=== PATIENT | male | born 1950 | race Caucasian/White ===

== ENCOUNTER 2016-10-17 19:34 | Emergency (ER) | payer MEDICARE ==
[~2016-10-17] VITALS: Ht 185.4 cm; Wt 104.1 kg
[~2016-10-17 19:34] MED LIST: ASPI-557 PO; ATOR80TA PO; CARV3.123 PO; CITA-51 PO; DIGO125T88 PO; IBUP-1547 PO; ISOS60TA4 PO; MULT-933 PO; NITR0.4T39 SL; PRAS10TA5 PO; SACU1TAB PO; SPIR25TA4 PO
[2016-10-17 19:38] VITALS: Ht 185.4 cm; Wt 104.1 kg
--- OUTSIDE RECORDS SUMMARY | 2016-10-17 19:39 | XMS REPORT | Continuity of Care Document ---
Author Author [facility] Organization [facility] Address Unknown Phone Unavailable Support Name Relationship Address Phone SURJIT CONNER Caregiver [address] [place] [address] Unavailable DEMETRIUS TAYLOR Caregiver [address] [place] [address] Unavailable FIGUEROAZAIRA Hill Next Of Kin Unknown [phone] Insurance Providers Guarantor Codey Pena Address [address] [place] [address] CP Email DENIED/NO PT [employer] [facility] Payer Medicare Policy Number [id number] Subscriber's Name Codey Pena Relationship 18 Self Effective Date 08 Chief Complaint and Reason for Visit Chief Complaint Acute Medical Problem Reason for Visit Blurred vision Arm pain Problems Active Problems Medical Problem Onset Date Status Angina at rest Unknown Acute Past Problems Medical Problem Onset Date Arm pain Unknown Blurred vision Unknown Chest pain on exertion Unknown Hand tingling Unknown STEMI (ST elevation myocardial infarction) Unknown Medications Current Home Medications Medication Dose Units Route Directions Days Qty Instructions Start Date Aspirin (Aspir 81) 81 Mg Tablet.dr 81 Mg Oral Bedtime 01/19/16 Atorvastatin Calcium (Lipitor) 80 Mg Tablet 80 Mg Oral Bedtime Carvedilol 3.125 Mg Tablet 1 Tab Oral Twice Daily With Meals BEST WITH FOOD. 04/16/16 Citalopram Hydrobromide (Celexa) 40 Mg Tablet 40 Mg Oral Bedtime 04/25/09 Digoxin 125 Mcg Tablet 125 Mg Oral Daily 04/16/16 Ibuprofen 800 Mg Tablet 800 Mg Oral Every 6 Hours as needed for Pain 01/19/16 Isosorbide Mononitrate (Isosorbide Mononitrate Er) 60 Mg Tab.er.24h 30 Mg Oral Daily 04/16/16 Multivitamin (Multi-Day Vitamins) 1 Each Tablet 1 Tab Oral Daily 04/16/16 Nitroglycerin 0.4 Mg Tab.subl 0.4 Mg Sublingual Every 5 Minutes X 3 as needed for Chest Tightness 01/27/16 Prasugrel Hcl (Effient) 10 Mg Tablet 10 Mg Oral Daily 05/13/16 Sacubitril/Valsartan (Entresto 24 Mg-26 Mg Tablet) 1 Each Tablet 1 Tab Oral Daily 04/16/16 Spironolactone 25 Mg Tablet 25 Mg Oral Daily 04/16/16 Past Home Medications Medication Directions Ordered Status Aspirin 81 Mg Tablet, 81 Mg Oral Bedtime 03/23/09 Discontinued Atenolol 25 Mg Tablet, 25 Mg Oral Daily 04/25/09 Discontinued Carvedilol (Coreg) 25 Mg Tablet, 25 Mg Oral Twice Daily With Meals 01/19/16 Discontinued Clopidogrel Bisulfate (Plavix) 75 Mg Tablet, 75 Mg Oral Daily 01/19/16 Discontinued Lisinopril 2.5 Mg Tablet, 2.5 Mg Oral Bedtime 01/19/16 Discontinued Lisinopril 2.5 Mg Tablet, 2.5 Mg Oral Daily 04/25/09 Discontinued Lisinopril 10 Mg Tablet, 5 Mg Oral Daily 03/23/09 Discontinued Simvastatin 40 Mg Tablet, 40 Mg Oral Bedtime 04/25/09 Discontinued Social History Social History Problem Response Recorded Date/Time Onset Date Status Chewing Tobacco Status No 07/04/2012 2:53pm Not Applicable Not Applicable Hx Substance Use No 04/15/2016 9:16am Not Applicable Not Applicable Hx Alcohol Use No 04/15/2016 9:16am Not Applicable Not Applicable Has the pt used tobacco in the last 12 months Yes 04/15/2016 9:16am Not Applicable Not Applicable Tobacco Usage none 10/15/2015 3:17am Not Applicable Not Applicable Hospital Discharge Instructions No hospital discharge instructions. Plan of Care Discharge Date 05/13/16 6:25pm Disposition 01 DISCHARGED HOME, SELF-CARE Condition at Discharge Improved Instructions/Education Provided DI for Shortness of Breath DI for Arm Pain Prescriptions See Medication Section Referrals DEMETRIUS TAYLOR Address: [address] [place] [id number] Note: OPAL GILL MD Address: [address] [place] [address] [place] [phone] Note: Call tomorrow for appointment Care Plan and Goals Physician Care Plan Problem: 1. Bilateral Arm Pain 2. Shortness of Breath 3. Blurred vision Goal: 1. Follow up with primary care provider in [address] Gill tomorrow for appointment 3. COntinue Home Medications 4. Return to the ER as needed Instructions: 1. Follow care plan as discussed/written Functional Status No functional status results. Allergies, Adverse Reactions, Alerts Allergen Type Severity Reaction Status Last Updated No Known Drug Allergies Allergy Unknown Active 05/13/16 Immunizations Query Response on File Recorded Date/Time Hx Influenza Vaccination Y 201504/15/16 9:16am Hx Pneumococcal Vaccination Y 201504/15/16 9:16am Hx Tetanus, Diptheria, Pertussis N/A SKIN INTACT 08/02/12 3:00pm Hx Influenza Vaccination Y 201504/15/16 9:16am Hx Tetanus, Diptheria, Pertussis N/A SKIN INTACT 08/02/12 3:00pm Vital Signs Acute Vital Signs Vital Response Date/Time Temperature (Fahrenheit) 98.2 deg F (96.8 - 99.1) 05/13/2016 6:25pm Temperature (Calculated Celsius) 36.91849 degrees C (36.0 - 37.3) 05/13/2016 6:25pm Pulse Rate (adult) 58 bpm (60 - 100) 05/13/2016 6:28pm Respiratory Rate 20 breaths/min (10 - 20) 05/13/2016 6:28pm O2 Sat by Pulse Oximetry 98 % (90 - 100) 05/13/2016 6:28pm Oxygen Delivery Method Room Air 04/16/2016 12:01pm Blood Pressure 134/76 mm Hg 05/13/2016 6:28pm Blood Pressure Source Automatic Cuff 04/16/2016 12:01pm Height (Feet) 6 feet 05/13/2016 4:20pm Height (Inches) 2.00 inches 05/13/2016 4:20pm Weight (Kilograms) 106.200 kg 05/13/2016 4:20pm Body Mass Index (BMI) 30.0 05/13/2016 4:20pm Results Laboratory Results Test Name Result Units Flags Reference Collection Date/Time Result Date/ Time Comments White Blood Count 9.1 T/MM3 4.5-11.0 05/13/2016 4:44pm 05/13/2016 4: 50pm Red Blood Count 4.38 M/MM3 L 4.50-5.90 05/13/2016 4:44pm 05/13/2016 4: 50pm Hemoglobin 14.2 GM/DL 13.5-17.5 05/13/2016 4:44pm 05/13/2016 4:50pm Hematocrit 42.0 % 41-53 05/13/2016 4:44pm 05/13/2016 4:50pm Mean Corpuscular Volume 95.9 UM3 80-100 05/13/2016 4:44pm 05/13/2016 4: 50pm Mean Corpuscular Hemoglobin 32.4 UUG 26-34 05/13/2016 4:44pm 2015 4:50pm Mean Corpuscular Hemoglobin Concent 33.8 GM/DL 31-37 05/13/2016 4:44pm 05/13/2016 4:50pm RDW Standard Deviation 46.1 FL 36.9-50.2 05/13/2016 4:44pm 05/13/2016 4 :50pm Platelet Count 186 T/MM3 130-400 05/13/2016 4:44pm 05/13/2016 4:50pm Mean Platelet Volume 10.3 UM3 9.4-12.4 05/13/2016 4:44pm 05/13/2016 4: 50pm Neutrophils (%) (Auto) 51.1 % 33-66 05/13/2016 4:44pm 05/13/2016 4: 50pm Lymphocytes (%) (Auto) 38.5 % 23-45 05/13/2016 4:44pm 05/13/2016 4: 50pm Monocytes (%) (Auto) 8.6 % 0-9.0 05/13/2016 4:44pm 05/13/2016 4:50pm Eosinophils (%) (Auto) 1.4 % 0-4 05/13/2016 4:44pm 05/13/2016 4:50pm Basophils (%) (Auto) 0.2 % 0-2 05/13/2016 4:44pm 05/13/2016 4:50pm Immature Granulocyte % (Auto) 0.2 % 0.0-0.5 05/13/2016 4:44pm 2015 4:50pm Absolute Neutrophils (auto) 4.7 T/MM3 1.8-7.7 05/13/2016 4:44pm 2015 4:50pm Absolute Lymphocytes (auto) 3.5 T/MM3 1-4.8 05/13/2016 4:44pm 2015 4:50pm Absolute Monocytes (auto) 0.8 T/MM3 0-0.8 05/13/2016 4:44pm 05/13/2016 4:50pm Absolute Eosinophils (auto) 0.1 T/MM3 0-0.5 05/13/2016 4:44pm 2015 4:50pm Absolute Basophils (auto) 0.0 T/MM3 0-0.2 05/13/2016 4:44pm 05/13/2016 4:50pm Absolute Immature Granulocyte (auto 0.02 T/MM3 0.00-0.03 05/13/2016 4: 44pm 05/13/2016 4:50pm Prothromb Time International Ratio 1.09 0.99-1.21 05/13/2016 4:44pm 05/13/2016 4:56pm THERAPUTIC RANGE=2.00-3.00 FOR ANTI-THROMBOSIS THERAPUTIC RANGE=2.50-3.50 FOR IMPLANTED VALVE Icterus Index < 2 0-7 05/13/2016 4:44pm 05/13/2016 5:01pm Chemistry Specimen Hemolysis < 15 0-25 05/13/2016 4:44pm 05/13/2016 5 :01pm 0-25: Specimen Exhibited No Hemolysis. Turbidity < 20 0-20 05/13/2016 4:44pm 05/13/2016 5:01pm Sodium Level 140 MEQ/L 134-144 05/13/2016 4:44pm 05/13/2016 5:01pm Potassium Level 3.9 MEQ/L 3.6-5 05/13/2016 4:44pm 05/13/2016 5:01pm Chloride Level 106 MEQ/L 98-107 05/13/2016 4:44pm 05/13/2016 5:01pm Carbon Dioxide Level 25 MEQ/L 22-30 05/13/2016 4:44pm 05/13/2016 5: 01pm Anion Gap 9 MEQ/L 5-15 05/13/2016 4:44pm 05/13/2016 5:01pm Blood Urea Nitrogen 17.0 MG/DL 9-20 05/13/2016 4:44pm 05/13/2016 5: 01pm Creatinine 0.9 MG/DL 0.8-1.5 05/13/2016 4:44pm 05/13/2016 5:01pm BUN/Creatinine Ratio 19 RATIO 6-26 05/13/2016 4:44pm 05/13/2016 5:01pm Glomerular Filtration Rate Calc 85 05/13/2016 4:44pm 05/13/2016 5: 01pm Glucose Level 86 MG/DL 75-110 05/13/2016 4:44pm 05/13/2016 5:01pm Calculated Osmolality 270 MOSM/KG 261-280 05/13/2016 4:44pm 05/13/2016 5:01pm Calcium Level 9.3 MG/DL 8.4-10.2 05/13/2016 4:44pm 05/13/2016 5:01pm Troponin I 0.013 ng/ml 0-0.12 05/13/2016 4:44pm 05/13/2016 5:13pm Troponin values with a difference of 55% increase from orginal troponin value represent a true biological DELTA value. (%increase Calc=Orginal Troponin value, divided by subsequent Troponin value, multiplied by 100) NG-Wbr-C-Type Natriuretic Peptide 1490 PG/ML H 0-175 05/13/2016 4:44pm 05/13/2016 5:13pm Rule in cut points: <50 years old=450; 50-75 years old=900; >75 years old=1800; When utilizing ProBNP rule-in cut points, adjustment for impaired renal function is typically not required. Name: CODEY PENA Unit #: [id number] : 1950 Sex: M Admit Date: Loc / Svc: ED Discharge Date: DIAGNOSTIC IMAGING REPORT Report #: [id number] [facility] Indication: ITS.REASON: intermittant blurred vision PROCEDURE: CT HEAD W/O CONTRAST: Encounter: Initial Comparison: None Technique: Axial CT images through the head were performed without contrast. FINDINGS: The ventricles are of normal size, shape, and contour for the patient's age. There are scattered areas of low attenuation in the white matter which most likely represent changes from chronic microvascular ischemia. The brainstem, cerebellum, and cerebral hemispheres otherwise have a normal morphology and CT attenuation. There is no evidence of midline displacement. No hemorrhage, signs of acute territorial stroke, mass effect, mass lesions, or edema is evident. The visualized portions of the skull base, midface, and calvarium demonstrate no abnormality. The paranasal sinuses are well aerated and free of significant disease. The tympanic and mastoid cavities appear normal. IMPRESSION: 1. Negative for acute intracranial process. 2. Mild cerebral atrophy and chronic microvascular ischemia. . Procedures Procedure Status Date Provider(s) ROUTINE VENIPUNCTURE Completed 04/16/16 METABOLIC PANEL TOTAL CA Completed 04/16/16 COMPLETE CBC W/AUTO DIFF WBC Completed 04/16/16 PRQ CARDIAC ANGIOPLAST 1 ART Completed 04/16/16 OPAL GILL MD ELECTROCARDIOGRAM TRACING Completed 04/16/16 L HRT ART/GRFT ANGIO Completed 04/16/16 OPAL GILL MD [id number]/PERFUSION CAPABILITY) Completed 04/16/16 226411"CLOSURE DEVICE, VASCULAR (IMPLANTABLE/INSERTABLE)" Completed 04/16/16 [id number] WIRE Completed 04/16/16 908710"CATHETER, GUIDING (MAY INCLUDE INFUSION/PERFUSION CAP Completed [id number] THAN PEEL-AWAY Completed 04/16/16 345558"INJECTION, HEPARIN SODIUM, PER 1000 UNITS" Completed 04/16/16 730656"INJECTION, HEPARIN SODIUM, PER 1000 UNITS" Completed 04/16/16 022224"INJECTION, MIDAZOLAM HYDROCHLORIDE, PER 1 MG" Completed 04/16/16 558279"INJECTION, FENTANYL CITRATE, 0.1 MG" Completed 04/16/16 344035"LOW OSMOLAR CONTRAST MATERIAL, 300-399 MG/ML IODINE C Completed 206312"LOW OSMOLAR CONTRAST MATERIAL, 300-399 MG/ML IODINE C Completed 141984"LOW OSMOLAR CONTRAST MATERIAL, 300-399 MG/ML IODINE C Completed Encounters Encounter Location Arrival/Admit Date Discharge/Depart Date Attending Provider Departed Emergency Room [facility] 05/13/16 4:16pm 05/13/16 6: 25pm SURJIT CONNER DO Departed Clinic [facility] 11/01/16 6:02am 04/16/16 12:20pm OPAL GILL MD Recent Diagnosis
--- OUTSIDE RECORDS SUMMARY | 2016-10-17 19:39 | XMS REPORT | Referral Summary ---
Author Author [facility] Organization [facility] Address Unknown Phone Unavailable Care Team Providers Care Filing Or Registry Clerk Name Role Phone Bc Orourke Primary Care Physician [phone] Encounter Date(s): 04/04/16 - 04/04/16 [facility] [address] [place], [place] [address] Discharge Diagnosis: Fatigue Discharge Diagnosis: Tobacco user Discharge Diagnosis: Benign essential hypertension Discharge Diagnosis: DDD (degenerative disc disease), lumbar Discharge Diagnosis: Coronary artery disease involving [place] heart Discharge Diagnosis: Mixed hyperlipidemia Discharge Disposition: 01-Home or Self Care Attending Physician: Geo Orourke MD Admitting Physician: Geo Orourke MD Vital Signs Most recent to 1 oldest [Reference Range]: Peripheral Pulse 75 bpm Rate [60-100 bpm] (04/04/16 3:59 PM) Respiratory Rate 18 br/min [14-20 br/min] (04/04/16 3:59 PM) Blood Pressure 142/92 mmHg [90-140/60-90 mmHg] *HI* (04/04/16 3:59 PM) SpO2 99 % (04/04/16 3:59 PM) Problem List Condition Effective Dates Status Health Status Informant DDD (degenerative Active disc disease), lumbar(Confirmed) Heart Active disease(Confirmed) Lumbar Active spondylosis(Confirme d) Lumbosacral Active radiculopathy(Confir med) Heart Active attack(Confirmed) Neuropathy(Confirmed Active ) Obesity(Confirmed) Active patient Lumbar disc Active herniation(Confirmed ) Spinal stenosis, Active lumbar region, without neurogenic claudication(Confirm ed) Tobacco Active patient user(Confirmed) Allergies, Adverse Reactions, Alerts No Known Medication Allergies Medications aspirin 81 mg, Oral, Daily, 0 Refill(s) Start Date: 02/07/16 Status: Ordered atorvastatin 80 mg oral tablet mg tabs, Oral, Daily, 0 Refill(s) Start Date: 02/07/16 Status: Ordered carvedilol 3.125 mg oral tablet 3.125 mg 1 tabs, Oral, BID, 0 Refill(s) Start Date: 02/07/16 Status: Ordered digoxin 125 mcg (0.125 mg) oral tablet 1 tabs, Oral, Daily, 0 Refill(s) Start Date: 02/07/14 Status: Ordered Effient 10 mg oral tablet 10 mg 1 tabs, Oral, Daily, # 30 tabs, 0 Refill(s) Start Date: 02/07/16 Status: Ordered gabapentin 300 mg oral capsule See Instructions, 1 cap at bedtime for 5 days, then increase to 1 cap in AM and 1 at bedtime for 5 days, then 1 cap 3 times daily if tolerated and needed., # 90 caps, 0 Refill(s), Pharmacy: [facility], 1 cap at bedtime for 5 da... Start Date: 11/17/15 Status: Ordered ibuprofen 800 mg oral tablet See Instructions, TAKE 1 TABLET BY MOUTH THREE TIMES A DAY NEEDED FOR PAIN, # 90 tabs, eRx: [facility], TAKE 1 TABLET BY MOUTH THREE TIMES A DAY NEEDED FOR PAIN Start Date: 04/01/16 Status: Ordered nitroglycerin 0.4 mg, as needed for chest pain, 0 Refill(s) Start Date: 02/07/16 Status: Ordered [place] 10 mg-325 mg oral tablet 1 tabs, Oral, QID, DUE TO BE FILLED 05/05/2016, # 120 tabs, 0 Refill(s) Start Date: 04/04/16 Status: Ordered Results Hematology Most recent to 1 oldest [Reference Range]: WBC [4.8-10.8 8.8 10*3/uL 10*3/uL] (04/04/16 4:47 PM) RBC [4.60-6.20] 4.48 *LOW* (04/04/16 4:47 PM) Hgb [14.0-18.0 13.9 gm/dL gm/dL] *LOW* (04/04/16 4:47 PM) Hct [42.0-52.0 %] 41.8 % *LOW* (04/04/16 4:47 PM) MCV [82.0-99.0 fL] 93.3 fL (04/04/16 4:47 PM) MCH [27.0-32.0 pg] 31.0 pg (04/04/16 4:47 PM) MCHC [32.0-36.0 33.3 gm/dL gm/dL] (04/04/16 4:47 PM) RDW [11.5-14.5 %] 13.6 % (04/04/16 4:47 PM) Platelet [150-400 219 10*3/uL 10*3/uL] (04/04/16 4:47 PM) MPV [8.8-14.8 fL] 10.9 fL (04/04/16 4:47 PM) Immature 0.2 % Granulocytes (04/04/16 4:47 PM) [0.0-1.0 %] Neutrophils [51-75 47 % %] *LOW* (04/04/16 4:47 PM) Lymphocytes [20-46 39 % %] (04/04/16 4:47 PM) Monocytes [4-11 %] 11 % (04/04/16 4:47 PM) Eosinophils [0-4 %] 2 % (04/04/16 4:47 PM) Basophils [0-2 %] 0 % (04/04/16 4:47 PM) Neutro Absolute 4.17 10*3 [1.90-7.00 10*3] (04/04/16 4:47 PM) Lymph Absolute 3.43 10*3 [0.80-3.30 10*3] *HI* (04/04/16 4:47 PM) [place] Absolute 0.99 10*3 [0.30-1.00 10*3] (04/04/16 4:47 PM) Eos Absolute 0.17 10*3 [0.00-0.50 10*3] (04/04/16 4:47 PM) Baso Absolute 0.02 10*3 [0.00-0.20 10*3] (04/04/16 4:47 PM) Chemistry Most recent to 1 oldest [Reference Range]: Sodium Lvl [135-144 140 mEq/L mEq/L] (04/04/16 4:47 PM) Potassium Lvl 4.0 mEq/L [3.5-5.2 mEq/L] (04/04/16 4:47 PM) Chloride [99-111 108 mEq/L mEq/L] (04/04/16 4:47 PM) CO2 [23-31 mEq/L] 23 mEq/L (04/04/16 4:47 PM) AGAP [3-20] 9 (04/04/16 4:47 PM) BUN [8-26 mg/dL] 17 mg/dL (04/04/16 4:47 PM) Glucose Lvl [70-99 92 mg/dL mg/dL] (04/04/16 4:47 PM) Creatinine Lvl 0.88 mg/dL [0.72-1.25 mg/dL] (04/04/16 4:47 PM) eGFR [>60 mL/min] >60 mL/min 1 (04/04/16 4:47 PM) Calcium Lvl 9.4 mg/dL [8.9-10.5 mg/dL] (04/04/16 4:47 PM) Albumin Lvl [3.4-4.8 4.6 gm/dL gm/dL] (04/04/16 4:47 PM) Total Protein 7.1 gm/dL [6.0-7.6 gm/dL] (04/04/16 4:47 PM) Globulin [1.8-4.0 2.5 gm/dL gm/dL] (04/04/16 4:47 PM) ALT [0-55 U/L] 20 U/L (04/04/16 4:47 PM) AST [5-34 U/L] 24 U/L (04/04/16 4:47 PM) Alk Phos [40-150 57 U/L U/L] (04/04/16 4:47 PM) Bili Total [0.2-1.2 0.6 mg/dL mg/dL] (04/04/16 4:47 PM) LDL Direct [0-129 81 mg/dL mg/dL] (04/04/16 4:47 PM) 1Result Comment: Multiply eGFR results by 1.21 for race. Immunizations Vaccine Date Refusal Reason tetanus/diphth/pertuss (Tdap) adult/adol 12/01/15 tetanus/diphth/pertuss (Tdap) adult/adol 09/01/09 influenza virus vaccine, inactivated 04/04/16 influenza virus vaccine, live 04/14/13 influenza virus vaccine, live 07/09/12 pneumococcal 13-valent conjugate vaccine 04/04/16 pneumococcal 23-polyvalent vaccine 02/12/13 zoster vaccine live 02/12/13 Procedures Procedure Date Related Diagnosis Body Site Lumbar Myelogram 03/22/15 Left L3-4/L4-5 Transforaminal 12/05/14 Pacemaker Social History Social History Type Response Smoking Status Current every day smoker; Type: Cigarettes; Tobacco use per day: More than 1 pack Assessment and Plan Extracted from: Title: Office Visit Note Author: Geo Orourke MD Date: 04/04/16 Assessment/Plan 1.Benign essential hypertension Continue current medications. We'll have him check laboratory as ordered. We'll send him the results in the mail. Ordered: CBC w/ Differential Comprehensive Metabolic Panel LDL Direct Office Visit Level 4 Est 14539 2.Mixed hyperlipidemia Continue low-cholesterol low-fat diet and activity. I encouraged him follow through with hisplan for cardiac rehabilitationcheck an LDL direct today. Follow-up in 3 months and period. Ordered: CBC w/ Differential Comprehensive Metabolic Panel LDL Direct Office Visit Level 4 Est 90844 3.DDD (degenerative disc disease), lumbar Is given a prescription for his [place]- 1 prescription to get filled soon and will get filled in about a month. Ordered: CBC w/ Differential Comprehensive Metabolic Panel Office Visit Level 4 Est 05208 4.Coronary artery disease involving [place] heart Continue follow-up with Ordered: CBC w/ Differential Comprehensive Metabolic Panel LDL Direct Office Visit Level 4 Est 66184 5.Fatigue Increase the Celexa to 100 half tablets daily. Ordered: CBC w/ Differential Comprehensive Metabolic Panel Office Visit Level 4 Est 53636 6.Tobacco user Continue off the cigarettes. Add in an exercise program such as walking or bicyclingcontinue with rehabilitation. Ordered: CBC w/ Differential Comprehensive Metabolic Panel Office Visit Level 4 Est 65417 Immunization due He was given a Prevnar and flu shot today. Future Scheduled TestsReferral* Return to Clinic 04/04/16 4:34 PM * Return to Clinic 02/07/16 11:45 AM Referrals to Other Providers Referred by: Geo Orourke MD Referred by: Geo Orourke MD
--- OUTSIDE RECORDS SUMMARY | 2016-10-17 19:39 | XMS REPORT ---
Author Author Manuel Yeager Organization [facility] Address [address] [place] [address] Care Team Providers Care Inspector Soldering Name Role Phone Manuel Yeager Unavailable [phone] PROBLEMS Unknown Problems ALLERGIES Unknown Allergies SOCIAL HISTORY No smoking Hx information available PLAN OF CARE VITAL SIGNS MEDICATIONS Unknown Medications RESULTS No Results PROCEDURES No Known procedures IMMUNIZATIONS No Known Immunizations
--- OUTSIDE RECORDS SUMMARY | 2016-10-17 19:40 | XMS REPORT | Continuity of Care Document ---
Author Author [facility] Organization [facility] Address Unknown Phone Unavailable Allergies Active Description Code Type Severity Reaction Onset Reported/Identified Relationship to Patient Clinical Status Yes No Known Drug Allergies No Known Drug Allergies Drug Allergy Unknown N/A 03/23/2009 Yes No Known Medication Allergies NKMA N/A N/A 08/15/2014 Yes No Known Drug Allergies No Known Drug Allergies Drug Allergy Unknown NONE 02/11/2016 Medications Problems Date Dx Coded Attending Type Code Diagnosis Diagnosed By 10/15/2015 Cas Yeager MD E78.5 HYPERLIPIDEMIA, UNSPECIFIED 10/15/2015 Cas Yeager MD F17.210 NICOTINE DEPENDENCE, CIGARETTES, UNCOMPLICATED 10/15/2015 Cas Yeager MD F32.9 MAJOR DEPRESSIVE DISORDER, SINGLE EPISODE, UNSPECI 10/15/2015 Cas Yeager MD G89.29 OTHER CHRONIC PAIN 10/15/2015 Cas Yeager MD I10 ESSENTIAL (PRIMARY) HYPERTENSION 10/15/2015 Cas Yeager MD 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 [place] 10/15/2015 Cas Yeager MD 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/O 10/15/2015 Cas Yeager MD I25.5 ISCHEMIC CARDIOMYOPATHY 10/15/2015 Cas Yeager MD I25.810 ATHEROSCLEROSIS OF CABG W/O ANGINA PECTORIS 10/15/2015 Cas Yeager MD 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 10/15/2015 Cas Yeager MD I47.2 VENTRICULAR TACHYCARDIA 10/15/2015 Cas Yeager MD I48.91 UNSPECIFIED ATRIAL FIBRILLATION 10/15/2015 Cas Yeager MD I50.23 ACUTE ON CHRONIC SYSTOLIC (CONGESTIVE) HEART FAILU 10/15/2015 Cas Yeager MD Z82.49 FAMILY HX OF ISCHEM HEART DIS AND OTH DIS OF THE C 01/27/2016 Toy SARABIA, Manuel Z F E78.5 HYPERLIPIDEMIA, UNSPECIFIED 01/27/2016 Toy SARABIA, Manuel Z F F17.210 NICOTINE DEPENDENCE, CIGARETTES, UNCOMPLICATED 01/27/2016 Manuel Yeager MD F F32.9 MAJOR DEPRESSIVE DISORDER, SINGLE EPISODE, UNSPECI 01/27/2016 Manuel Yeager MD F I10 ESSENTIAL (PRIMARY) HYPERTENSION 01/27/2016 Manuel Yeager MD Z F 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 [place] 01/27/2016 Toy SARABIA, Manuel Z F I25.110 ATHSCL HEART DISEASE OF [place] COR ART W UNSTABLE 01/27/2016 Manuel Yeager MD F I25.5 ISCHEMIC CARDIOMYOPATHY 01/27/2016 Manuel Yeager MD F 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 01/27/2016 Manuel Yeager MD F I50.43 ACUTE ON CHRONIC COMBINED SYSTOLIC AND DIASTOLIC H 01/27/2016 Manuel Yeager MD Z F 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 01/27/2016 Manuel Yeager MD Z F Z95.5 PRESENCE OF CORONARY ANGIOPLASTY IMPLANT AND GRAFT 01/27/2016 Manuel Yeager MD Z F Z95.810 PRESENCE OF AUTOMATIC (IMPLANTABLE) CARDIAC DEFIBR Procedures Code Description Performed By Performed On 698349N DILATION OF 1 COR ART WITH DRUG-ELUT INTRALUM, PER Toy SARABIA, Assem Z 10/15/2015 [id number] DILATION OF CORONARY ARTERY, ONE SITE, DARLINEUTABLAYNE Yeager MD, Assem Z 10/15/2015 [id number] INTRODUCE OTH THERAP SUBST IN PERIPH VEIN, DARLINE Yeager MD, Assem Z 10/15/2015 [id number] MEASURE OF CARDIAC SAMPL PRESSURE, L HEART, DARLINE Yeager MD, Assem Z 10/15/2015 [id number] FLUOROSCOPY OF MULT COR ART USING L OSM CONTRAST Toy SARABIA, Assem Z 10/15/2015 [id number] FLUOROSCOPY OF SING COR A GRAFT USING L OSM CONTRLuana Yeager MD, Assem Z 10/15/2015 [id number] FLUOROSCOPY OF LEFT HEART USING LOW OSMOLAR CLEMENTINA Yeager MD, Assem Z 10/15/2015 [id number] FLUOROSCOPY OF L INT MAMM GRAFT USING L OSM CONTRA Toy SARABIA, Assem Z 10/15/2015 [id number] DILATION OF 1 COR ART WITH DRUG-ELUT INTRALUM, PER Toy SARABIA, Assem Z 01/27/2016 [id number] MEASURE OF CARDIAC SAMPL PRESSURE, L HEART, PERC Toy SARABIA, Assem Z 01/27/2016 [id number] ASSIST WITH CARDIAC OUTPUT USING BALLOON PUMP, CON Toy SARABIA, Assem Z 01/27/2016 [id number] FLUOROSCOPY OF MULT COR ART USING L OSM CONTRAST Toy SARABIA, [facility] Z 01/27/2016 Results Test Result Range CBC - 10/15/15 05:56 MEAN CELL HGB 32.5 pg 27.0-33.0 MEAN CELL HGB CONCENTRATION 34.3 g/dL 32.0-37.0 MEAN CELL VOLUME 94.7 fl 80.0-100.0 RED BLOOD CELL 4.56 m/cumm 4.00-6.00 RED CELL DISTRIBUTION WIDTH 14.0 % 11.0- 15.6 WHITE BLOOD CELL 13.7 k/cumm 5.0-10.0 HEMOGLOBIN 14.8 gm/dL 14.0-18.0 HEMATOCRIT 43.2 % 40.0-54.0 PLATELET COUNT 183 k/cumm 150-400 PROTHROMBIN TIME WITH INR - 10/15/15 05:56 INTERNATIONAL NORMAL RATIO 1.0 0.9-1.1 PROTHROMBIN TIME 11.1 sec 9.3-12.2 PARTIAL THROMBOPLASTIN TIME - 10/15/15 05:56 PARTIAL THROMBOPLASTIN TIME 32 sec 23-39 METABOLIC PANEL, COMPREHN - 10/15/15 05:56 POTASSIUM 4.5 mmol/L 3.5-5.3 EST GFR (MDRD) > 60 mL/min > 59 ANION GAP 10 mmol/L 5-15 EST CrCl (CG) > 60 mL/min > 59 GLUCOSE 126 mg/dL 70-99 CALCIUM 8.5 mg/dL 8.5-10.1 BLOOD UREA NITROGEN 17 mg/dL 7-20 CREATININE 1.0 mg/dL 0.7-1.3 SODIUM 141 mmol/L 135-148 CHLORIDE 107 mmol/L 98-110 AST/SGOT 61 Units/L 10-37 ALT/SGPT 18 Units/L < 66 CARBON DIOXIDE 24 mmol/L 21-32 TOTAL PROTEIN 6.9 gm/dL 6.4-8.2 ALBUMIN 3.4 gm/dL 3.4-5.0 BILI TOTAL 0.2 mg/dL 0.0-1.0 ALKALINE PHOSPHATASE TOTAL 65 IU/L 45- 117 MAGNESIUM - 10/15/15 05:56 MAGNESIUM 1.9 mg/dL 1.8-2.4 TROPONIN I - 10/15/15 05:56 TROPONIN I 13.79 ng/mL < 0.07 CBC - 10/15/15 09:34 MEAN CELL HGB 32.3 pg 27.0-33.0 MEAN CELL HGB CONCENTRATION 34.2 g/dL 32.0-37.0 MEAN CELL VOLUME 94.6 fl 80.0-100.0 RED BLOOD CELL 4.61 m/cumm 4.00-6.00 RED CELL DISTRIBUTION WIDTH 14.1 % 11.0- 15.6 WHITE BLOOD CELL 11.4 k/cumm 5.0-10.0 HEMOGLOBIN 14.9 gm/dL 14.0-18.0 HEMATOCRIT 43.6 % 40.0-54.0 PLATELET COUNT 185 k/cumm 150-400 TROPONIN I - 10/15/15 09:34 TROPONIN I 59.67 ng/mL < 0.07 B-TYPE NATRIURETIC PEPTIDE - 10/15/15 13:04 B-TYPE NATRIURETIC PEPTIDE 343 pg/mL < 100 CBC W/DIFF - 10/15/15 13:04 EOSINOPHIL # 0.1 k/cumm 0.1-0.5 EOSINOPHIL % 1 % 2-4 GRANULOCYTE # 8.8 k/cumm 2.0-9.0 GRANULOCYTE % 70 % 50-75 LYMPHOCYTE # 2.7 k/cumm 1.0-4.0 LYMPHOCYTE % 21 % 20-30 MEAN CELL HGB 32.4 pg 27.0-33.0 MEAN CELL HGB CONCENTRATION 34.3 g/dL 32.0-37.0 MEAN CELL VOLUME 94.5 fl 80.0-100.0 MONOCYTE # 1.1 k/cumm 0.1-1.0 MONOCYTE % 8 % 4-6 RED BLOOD CELL 4.54 m/cumm 4.00-6.00 RED CELL DISTRIBUTION WIDTH 13.7 % 11.0- 15.6 WHITE BLOOD CELL 12.6 k/cumm 5.0-10.0 HEMOGLOBIN 14.7 gm/dL 14.0-18.0 HEMATOCRIT 42.9 % 40.0-54.0 PLATELET COUNT 198 k/cumm 150-400 HEMOGLOBIN A1C - 10/15/15 13:04 HEMOGLOBIN A1C 5.7 % < 5.7 PTT HEPARIN PROTOCOLS - 10/15/15 13:04 PARTIAL THROMBOPLASTIN TIME 67 sec 23-39 CREATINE KINASE (CK/CPK) - 10/15/15 13:04 CREATINE KINASE (CK/CPK) 1090 Units/L < 309 CK MB - 10/15/15 13:04 CK MB 154.5 ng/mL < 4.0 MAGNESIUM - 10/15/15 13:04 MAGNESIUM 1.9 mg/dL 1.8-2.4 THYROID STIM HORMONE (TSH) - 10/15/15 13:04 THYROID STIM HORMONE (TSH) 0.73 uIU/mL 0.34-4.82 TROPONIN I - 10/15/15 13:04 TROPONIN I 63.49 ng/mL < 0.07 TROPONIN I - 10/15/15 18:20 TROPONIN I 44.38 ng/mL < 0.07 PTT HEPARIN PROTOCOLS - 10/15/15 18:26 PARTIAL THROMBOPLASTIN TIME 65 sec 23-39 B-TYPE NATRIURETIC PEPTIDE - 10/16/15 06:10 B-TYPE NATRIURETIC PEPTIDE 502 pg/mL < 100 CBC W/DIFF - 10/16/15 06:10 EOSINOPHIL # 0.1 k/cumm 0.1-0.5 EOSINOPHIL % 1 % 2-4 GRANULOCYTE # 9.2 k/cumm 2.0-9.0 GRANULOCYTE % 66 % 50-75 LYMPHOCYTE # 3.2 k/cumm 1.0-4.0 LYMPHOCYTE % 23 % 20-30 MEAN CELL HGB 31.8 pg 27.0-33.0 MEAN CELL HGB CONCENTRATION 33.7 g/dL 32.0-37.0 MEAN CELL VOLUME 94.5 fl 80.0-100.0 MONOCYTE # 1.4 k/cumm 0.1-1.0 MONOCYTE % 10 % 4-6 RED BLOOD CELL 4.37 m/cumm 4.00-6.00 RED CELL DISTRIBUTION WIDTH 13.5 % 11.0- 15.6 WHITE BLOOD CELL 14.0 k/cumm 5.0-10.0 HEMOGLOBIN 13.9 gm/dL 14.0-18.0 HEMATOCRIT 41.3 % 40.0-54.0 PLATELET COUNT 183 k/cumm 150-400 METABOLIC PANEL, BASIC - 10/16/15 06:10 POTASSIUM 4.0 mmol/L 3.5-5.3 EST GFR (MDRD) > 60 mL/min > 59 ANION GAP 5 mmol/L 5-15 EST CrCl (CG) > 60 mL/min > 59 GLUCOSE 125 mg/dL 70-99 CALCIUM 8.2 mg/dL 8.5-10.1 BLOOD UREA NITROGEN 11 mg/dL 7-20 CREATININE 0.8 mg/dL 0.7-1.3 SODIUM 140 mmol/L 135-148 CHLORIDE 108 mmol/L 98-110 CARBON DIOXIDE 27 mmol/L 21-32 LIPID PANEL - 10/16/15 06:10 CHOLESTEROL/HDL RATIO 5.2 < 5.0 LDL CHOLESTEROL 108 mg/dL < 100 VLDL CHOLESTEROL 25 mg/dL < 30 TRIGLYCERIDES 125 mg/dL < 150 CHOLESTEROL 165 mg/dL < 200 HDL CHOLESTEROL 32 mg/dL > 39 MAGNESIUM - 10/16/15 06:10 MAGNESIUM 1.7 mg/dL 1.8-2.4 PTT HEPARIN PROTOCOLS - 10/16/15 10:20 PARTIAL THROMBOPLASTIN TIME 35 sec 23-39 CBC - 10/17/15 07:48 MEAN CELL HGB 32.4 pg 27.0-33.0 MEAN CELL HGB CONCENTRATION 34.8 g/dL 32.0-37.0 MEAN CELL VOLUME 93.2 fl 80.0-100.0 RED BLOOD CELL 4.41 m/cumm 4.00-6.00 RED CELL DISTRIBUTION WIDTH 13.6 % 11.0- 15.6 WHITE BLOOD CELL 12.9 k/cumm 5.0-10.0 HEMOGLOBIN 14.3 gm/dL 14.0-18.0 HEMATOCRIT 41.1 % 40.0-54.0 PLATELET COUNT 175 k/cumm 150-400 METABOLIC PANEL, BASIC - 10/17/15 07:48 POTASSIUM 3.5 mmol/L 3.5-5.3 EST GFR (MDRD) > 60 mL/min > 59 ANION GAP 6 mmol/L 5-15 EST CrCl (CG) > 60 mL/min > 59 GLUCOSE 119 mg/dL 70-99 CALCIUM 8.4 mg/dL 8.5-10.1 BLOOD UREA NITROGEN 14 mg/dL 7-20 CREATININE 0.8 mg/dL 0.7-1.3 SODIUM 140 mmol/L 135-148 CHLORIDE 104 mmol/L 98-110 CARBON DIOXIDE 30 mmol/L 21-32 CBC - 01/27/16 17:36 MEAN CELL HGB 31.9 pg 27.0-33.0 MEAN CELL HGB CONCENTRATION 34.1 g/dL 32.0-37.0 MEAN CELL VOLUME 93.7 fl 80.0-100.0 RED BLOOD CELL 4.42 m/cumm 4.00-6.00 RED CELL DISTRIBUTION WIDTH 14.5 % 11.0- 15.6 WHITE BLOOD CELL 11.5 k/cumm 5.0-10.0 HEMOGLOBIN 14.1 gm/dL 14.0-18.0 HEMATOCRIT 41.4 % 40.0-54.0 PLATELET COUNT 174 k/cumm 150-400 METABOLIC PANEL, [facility] - 01/27/16 17:36 POTASSIUM 3.9 mmol/L 3.5-5.3 EST GFR (MDRD) > 60 mL/min > 59 ANION GAP 10 mmol/L 5-15 EST CrCl (CG) > 60 mL/min > 59 GLUCOSE 131 mg/dL 70-99 CALCIUM 8.3 mg/dL 8.5-10.1 BLOOD UREA NITROGEN 16 mg/dL 7-20 CREATININE 0.9 mg/dL 0.7-1.3 SODIUM 142 mmol/L 135-148 CHLORIDE 108 mmol/L 98-110 CARBON DIOXIDE 24 mmol/L 21-32 TROPONIN I - 01/27/16 17:36 TROPONIN I 8.34 ng/mL < 0.07 CBC - 01/28/16 05:03 MEAN CELL HGB 31.6 pg 27.0-33.0 MEAN CELL HGB CONCENTRATION 34.1 g/dL 32.0-37.0 MEAN CELL VOLUME 92.7 fl 80.0-100.0 RED BLOOD CELL 4.55 m/cumm 4.00-6.00 RED CELL DISTRIBUTION WIDTH 14.6 % 11.0- 15.6 WHITE BLOOD CELL 12.9 k/cumm 5.0-10.0 HEMOGLOBIN 14.4 gm/dL 14.0-18.0 HEMATOCRIT 42.2 % 40.0-54.0 PLATELET COUNT 161 k/cumm 150-400 TROPONIN I - 01/28/16 05:03 TROPONIN I 23.00 ng/mL < 0.07 METABOLIC PANEL, COMPREHN 01/28/16 05:03 POTASSIUM 3.9 mmol/L 3.5-5.3 EST GFR (MDRD) > 60 mL/min > 59 ANION GAP 6 mmol/L 5-15 EST CrCl (CG) > 60 mL/min > 59 GLUCOSE 105 mg/dL 70-99 CALCIUM 8.4 mg/dL 8.5-10.1 BLOOD UREA NITROGEN 18 mg/dL 7-20 CREATININE 0.8 mg/dL 0.7-1.3 SODIUM 141 mmol/L 135-148 CHLORIDE 111 mmol/L 98-110 AST/SGOT 137 Units/L 10-37 ALT/SGPT 32 Units/L < 66 CARBON DIOXIDE 24 mmol/L 21-32 TOTAL PROTEIN 6.4 gm/dL 6.4-8.2 ALBUMIN 3.4 gm/dL 3.4-5.0 BILI TOTAL 0.9 mg/dL 0.0-1.0 ALKALINE PHOSPHATASE TOTAL 48 IU/L 45- 117 LIPID PANEL - 01/28/16 05:03 CHOLESTEROL/HDL RATIO 3.1 < 5.0 LDL CHOLESTEROL 45 mg/dL < 100 VLDL CHOLESTEROL 23 mg/dL < 30 TRIGLYCERIDES 113 mg/dL < 150 CHOLESTEROL 101 mg/dL < 200 HDL CHOLESTEROL 33 mg/dL > 39 TROPONIN I - 01/28/16 13:20 TROPONIN I 15.20 ng/mL < 0.07 PROTHROMBIN TIME WITH INR - 01/28/16 13:20 INTERNATIONAL NORMAL RATIO 1.1 0.9-1.1 PROTHROMBIN TIME 12.1 sec 10.0-12.9 PARTIAL THROMBOPLASTIN TIME - 01/28/16 13:20 PARTIAL THROMBOPLASTIN TIME 30 sec 23-39 PTT HEPARIN PROTOCOLS - 01/28/16 21:51 PARTIAL THROMBOPLASTIN TIME 68 sec 23-39 PTT HEPARIN PROTOCOLS - 01/29/16 04:04 PARTIAL THROMBOPLASTIN TIME 75 sec 23-39 CBC - 01/29/16 04:04 MEAN CELL HGB 31.6 pg 27.0-33.0 MEAN CELL HGB CONCENTRATION 34.0 g/dL 32.0-37.0 MEAN CELL VOLUME 93.1 fl 80.0-100.0 RED BLOOD CELL 4.62 m/cumm 4.00-6.00 RED CELL DISTRIBUTION WIDTH 14.3 % 11.0- 15.6 WHITE BLOOD CELL 12.8 k/cumm 5.0-10.0 HEMOGLOBIN 14.6 gm/dL 14.0-18.0 HEMATOCRIT 43.0 % 40.0-54.0 PLATELET COUNT 170 k/cumm 150-400 METABOLIC PANEL, [facility] - 01/29/16 04:04 POTASSIUM 3.5 mmol/L 3.5-5.3 EST GFR (MDRD) > 60 mL/min > 59 ANION GAP 9 mmol/L 5-15 EST CrCl (CG) > 60 mL/min > 59 GLUCOSE 108 mg/dL 70-99 CALCIUM 8.8 mg/dL 8.5-10.1 BLOOD UREA NITROGEN 14 mg/dL 7-20 CREATININE 0.8 mg/dL 0.7-1.3 SODIUM 141 mmol/L 135-148 CHLORIDE 107 mmol/L 98-110 CARBON DIOXIDE 25 mmol/L 21-32 CBC - 01/30/16 03:58 MEAN CELL HGB 31.9 pg 27.0-33.0 MEAN CELL HGB CONCENTRATION 34.6 g/dL 32.0-37.0 MEAN CELL VOLUME 92.3 fl 80.0-100.0 RED BLOOD CELL 4.79 m/cumm 4.00-6.00 RED CELL DISTRIBUTION WIDTH 14.4 % 11.0- 15.6 WHITE BLOOD CELL 14.3 k/cumm 5.0-10.0 HEMOGLOBIN 15.3 gm/dL 14.0-18.0 HEMATOCRIT 44.2 % 40.0-54.0 PLATELET COUNT 167 k/cumm 150-400 PTT HEPARIN PROTOCOLS - 01/30/16 03:58 PARTIAL THROMBOPLASTIN TIME 64 sec 23-39 METABOLIC PANEL, [facility] - 01/30/16 03:58 POTASSIUM 3.2 mmol/L 3.5-5.3 EST GFR (MDRD) > 60 mL/min > 59 ANION GAP 12 mmol/L 5-15 EST CrCl (CG) > 60 mL/min > 59 GLUCOSE 138 mg/dL 70-99 CALCIUM 8.9 mg/dL 8.5-10.1 BLOOD UREA NITROGEN 18 mg/dL 7-20 CREATININE 0.9 mg/dL 0.7-1.3 SODIUM 140 mmol/L 135-148 CHLORIDE 102 mmol/L 98-110 CARBON DIOXIDE 26 mmol/L -32 PTT HEPARIN PROTOCOLS - 01/31/16 04:13 PARTIAL THROMBOPLASTIN TIME 69 sec 23-39 CBC - 01/31/16 04:13 MEAN CELL HGB 31.9 pg 27.0-33.0 MEAN CELL HGB CONCENTRATION 34.7 g/dL 32.0-37.0 MEAN CELL VOLUME 92.0 fl 80.0-100.0 RED BLOOD CELL 4.73 m/cumm 4.00-6.00 RED CELL DISTRIBUTION WIDTH 14.2 % 11.0- 15.6 WHITE BLOOD CELL 14.6 k/cumm 5.0-10.0 HEMOGLOBIN 15.1 gm/dL 14.0-18.0 HEMATOCRIT 43.5 % 40.0-54.0 PLATELET COUNT 176 k/cumm 150-400 METABOLIC PANEL, BASIC - 01/31/16 04:13 POTASSIUM 3.5 mmol/L 3.5-5.3 EST GFR (MDRD) > 60 mL/min > 59 ANION GAP 12 mmol/L 5-15 EST CrCl (CG) > 60 mL/min > 59 GLUCOSE 126 mg/dL 70-99 CALCIUM 9.0 mg/dL 8.5-10.1 BLOOD UREA NITROGEN 19 mg/dL 7-20 CREATININE 1.1 mg/dL 0.7-1.3 SODIUM 137 mmol/L 135-148 CHLORIDE 98 mmol/L 98-110 CARBON DIOXIDE 27 mmol/L 21-32 CBC - 02/01/16 04:03 MEAN CELL HGB 31.8 pg 27.0-33.0 MEAN CELL HGB CONCENTRATION 34.8 g/dL 32.0-37.0 MEAN CELL VOLUME 91.3 fl 80.0-100.0 RED BLOOD CELL 4.62 m/cumm 4.00-6.00 RED CELL DISTRIBUTION WIDTH 14.2 % 11.0- 15.6 WHITE BLOOD CELL 11.2 k/cumm 5.0-10.0 HEMOGLOBIN 14.7 gm/dL 14.0-18.0 HEMATOCRIT 42.2 % 40.0-54.0 PLATELET COUNT 175 k/cumm 150-400 METABOLIC PANEL, BASIC - 02/01/16 04:03 POTASSIUM 3.7 mmol/L 3.5-5.3 EST GFR (MDRD) > 60 mL/min > 59 ANION GAP 11 mmol/L 5-15 EST CrCl (CG) > 60 mL/min > 59 GLUCOSE 119 mg/dL 70-99 CALCIUM 8.9 mg/dL 8.5-10.1 BLOOD UREA NITROGEN 25 mg/dL 7-20 CREATININE 0.9 mg/dL 0.7-1.3 SODIUM 135 mmol/L 135-148 CHLORIDE 99 mmol/L 98-110 CARBON DIOXIDE 25 mmol/L - TROPONIN I - 02/12/16 00:05 TROPONIN I 0.04 ng/mL < 0.07 TROPONIN I - 02/12/16 05:25 TROPONIN I 0.04 ng/mL < 0.07 CBC - 02/12/16 08:32 MEAN CELL HGB 31.8 pg 27.0-33.0 MEAN CELL HGB CONCENTRATION 34.2 g/dL 32.0-37.0 MEAN CELL VOLUME 92.9 fl 80.0-100.0 RED BLOOD CELL 4.37 m/cumm 4.00-6.00 RED CELL DISTRIBUTION WIDTH 14.0 % 11.0- 15.6 WHITE BLOOD CELL 8.6 k/cumm 5.0-10.0 HEMOGLOBIN 13.9 gm/dL 14.0-18.0 HEMATOCRIT 40.6 % 40.0-54.0 PLATELET COUNT 247 k/cumm 150-400 METABOLIC PANEL, BASIC - 02/12/16 08:32 POTASSIUM 4.2 mmol/L 3.5-5.3 EST GFR (MDRD) > 60 mL/min > 59 ANION GAP 6 mmol/L 5-15 EST CrCl (CG) > 60 mL/min > 59 GLUCOSE 138 mg/dL 70-99 CALCIUM 9.2 mg/dL 8.5-10.1 BLOOD UREA NITROGEN 13 mg/dL 7-20 CREATININE 0.9 mg/dL 0.7-1.3 SODIUM 142 mmol/L 135-148 CHLORIDE 109 mmol/L 98-110 CARBON DIOXIDE 27 mmol/L CBC With Platelet and Differential - 04/04/16 16:47 Absolute Basophils 0.02 10*3 0.00-0.20 Absolute Eosinophils 0.17 10*3 0.00-0.50 Absolute Lymphocytes 3.43 10*3 0.80-3.30 Absolute Monocytes 0.99 10*3 0.30-1.00 Absolute Neutrophils 4.17 10*3 1.90-7.00 Basophils 0 % 0-2 Eosinophils 2 % 0-4 HCT 41.8 % 42.0-52.0 HGB 13.9 g/dL 14.0-18.0 Immature Granulocytes 0.2 % 0.0-1.0 Lymphocytes 39 % 20-46 MCH 31.0 pg 27.0-32.0 MCHC 33.3 g/dL 32.0-36.0 MCV 93.3 fL 82.0-99.0 Monocytes 11 % 4-11 MPV 10.9 fL 8.8-14.8 Neutrophils 47 % 51-75 Platelet Count 219 K/uL 150-400 RBC 4.48 10*6/uL 4.60-6.20 RDW 13.6 % 11.5-14.5 WBC 8.8 K/uL 4.8-10.8 Comprehensive Metabolic Panel (CMP) - 04/04/16 16:47 Albumin 4.6 g/dL 3.4-4.8 Alkaline Phosphatase 57 U/L 40-150 ALT (SGPT) 20 U/L 0-55 Anion Gap 9 NA 3-20 AST (SGOT) 24 U/L 5-34 Bilirubin Total 0.6 mg/dL 0.2-1.2 BUN 17 mg/dL 8-26 Calcium 9.4 mg/dL 8.9-10.5 Chloride 108 mEq/L 99-111 CO2 23 mEq/L 23-31 Creatinine 0.88 mg/dL 0.72-1.25 Globulin 2.5 g/dL 1.8-4.0 Glucose 92 mg/dL 70-99 Potassium 4.0 mEq/L 3.5-5.2 Protein 7.1 g/dL 6.0-7.6 Sodium 140 mEq/L 135-144 LDL Direct - 04/04/16 16:47 LDL Direct 81 mg/dL 0-129 eGFR - 04/04/16 16:47 eGFR >60 mL/min >60 Encounters ACCT No. Visit Date/Time Discharge Status Pt. Type Provider Facility Loc./Unit Complaint [id number] 02/11/2016 22:00:00 2015 12:50:00 DIS Outpatient Toy SARABIA, Manuel [facility] W.3TS [id number] 01/27/2016 14:30:00 2015 13:10:00 DIS Inpatient Manuel Yeager MD [facility] W.3CS [id number] 10/15/2015 04:11:00 2015 11:40:00 DIS Inpatient Toy SARABIA, Cas Tamayo [facility] W.3CS
--- OUTSIDE RECORDS SUMMARY | 2016-10-17 19:44 | XMS REPORT | Continuity of Care Document ---
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 01/27/2016 Manuel Yeaegr MD F I50.43 ACUTE ON CHRONIC COMBINED SYSTOLIC AND DIASTOLIC H 01/27/2016 Manuel Yeager MD Z F 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 01/27/2016 Manuel Yeager MD Z F Z95.5 PRESENCE OF CORONARY ANGIOPLASTY IMPLANT AND GRAFT 01/27/2016 Manuel Yeager MD Z F Z95.810 PRESENCE OF AUTOMATIC (IMPLANTABLE) CARDIAC DEFIBR Procedures Code Description Performed By Performed On [id number] DILATION OF 1 COR ART WITH DRUG-ELUT INTRALUM, PER Toy SARABIA, Assem Z 10/15/2015 [id number] DILATION OF CORONARY ARTERY, ONE SITE, DARLINEUTABLAYNE Yeager MD, Assem Z 10/15/2015 [id number] INTRODUCE OTH THERAP SUBST IN PERIPH VEIN, DARLINE Yeager MD, Assem Z 10/15/2015 [id number] MEASURE OF CARDIAC SAMPL PRESSURE, L HEART, DARLINE Yeager MD, Assem Z 10/15/2015 [id number] FLUOROSCOPY OF MULT COR ART USING L OSM CONTRAST Toy SARABIA, Assem Z 10/15/2015 [id number] FLUOROSCOPY OF SING COR A GRAFT USING L OSM CONTRLuana Yeager MD, Assem Z 10/15/2015 [id number] FLUOROSCOPY OF LEFT HEART USING LOW OSMOLAR CLEMENTINA Yeager MD, Assem Z 10/15/2015 [id number] FLUOROSCOPY OF L INT MAMM GRAFT USING L OSM CONTRA Toy SARABIA, Assem Z 10/15/2015 [id number] DILATION OF 1 COR ART WITH DRUG-ELUT INTRALUM, PER Toy SARABIA, Assem Z 01/27/2016 [id number] MEASURE OF CARDIAC SAMPL PRESSURE, L HEART, PERC Toy SARABIA, Assem Z 01/27/2016 [id number] ASSIST WITH CARDIAC OUTPUT USING BALLOON PUMP, CON Toy SARABIA, Assem Z 01/27/2016 [id number] FLUOROSCOPY OF MULT COR ART USING L OSM CONTRAST Toy SARABIA, [facility] Z 01/27/2016 Results Test Result Range CBC [...] PLATELET COUNT 174 k/cumm 150-400 METABOLIC PANEL, [facility] - 01/27/16 17:36 POTASSIUM 3.9 mmol/L 3.5-5.3 [...] PLATELET COUNT 170 k/cumm 150-400 METABOLIC PANEL, [facility] - 01/29/16 04:04 POTASSIUM 3.5 mmol/L 3.5-5.3 [...] THROMBOPLASTIN TIME 64 sec 23-39 METABOLIC PANEL, [facility] - 01/30/16 03:58 POTASSIUM 3.2 mmol/L 3.5-5.3 [...] Status Pt. Type Provider Facility Loc./Unit Complaint [id number] 02/11/2016 22:00:00 2015 12:50:00 DIS Outpatient Toy SARABIA, Manuel [facility] W.3TS [id number] 01/27/2016 14:30:00 2015 13:10:00 DIS Inpatient Manuel Yeager MD [facility] W.3CS [id number] 10/15/2015 04:11:00 2015 11:40:00 DIS Inpatient Toy SARABIA, Cas Tamayo [facility] W.3CS
--- NOTE | 2016-10-17 19:53 | NUR ---
PROVIDER DR HUANG IN TO SEE PATIENT.
[2016-10-17] MEDS ORDERED: NORMAL SALINE 1,000 ML IV ONE (20:00)
[2016-10-17] MEDS ORDERED: KETOROLAC 30mg/ml INJECTION IV ONE (20:00)
[2016-10-17] MEDS ORDERED: ONDANSETRON 4mg/2ml INJECTION IV ONE (20:00)
[2016-10-17 20:10] LABS: BASOPHILS % (AUTO) 0.2 % (0-2); EOSINOPHILS # (AUTO) 0.2 T/MM3 (0-0.5); EOSINOPHILS % (AUTO) 1.3 % (0-4); HCT - HEMATOCRIT 45.6 % (41-53); HGB - HEMOGLOBIN 15.5 GM/DL (13.5-17.5); IMMATURE GRANULOCYTE # (AUTO) 0.03 T/MM3 (0.00-0.03); IMMATURE GRANULOCYTE % (AUTO) 0.3 % (0.0-0.5); LYMPHOCYTES # (AUTO) 2.7 T/MM3 (1-4.8); LYMPHOCYTES % (AUTO) 22.9 % (23-45); MEAN CORPUSCULAR HGB 32.1 UUG (26-34); MEAN CORPUSCULAR VOLUME 94.4 UM3 (80-100); MEAN PLATELET VOLUME 9.9 UM3 (9.4-12.4); MONOCYTES # (AUTO) 0.7 T/MM3 (0-0.8); MONOCYTES % (AUTO) 5.9 % (0-9.0); NEUTROPHILS #(AUTO)-ABSOLUTE 8.3 T/MM3 (1.8-7.7); NEUTROPHILS % (AUTO) 69.4 % (33-66); RED BLOOD COUNT 4.83 M/MM3 (4.50-5.90); WBC - WHITE BLOOD COUNT 11.9 T/MM3 (4.5-11.0)
--- NOTE | 2016-10-17 20:16 | ERPDOC ---
Departure Disposition Decision Date: October 17, 2016 Disposition Decision Time: 21:03 Disposition: 01 DISCHARGED HOME, SELF-CARE Impression Impression Impression: Primary Impression: Viral syndrome Severity: Moderate Condition: Improved Seen By: Physician only Referrals: DEMETRIUS TAYLOR (Family) Patient Instructions: Viral Syndrome (ED) Problems/Meds/Labs Reviewed?: Yes Medications reviewed and manag: Yes Additional Instructions: Take ibuprofen 800 mg every 6-8 hours as needed for baseline pain and fever control Zofran 4 mg up to 4 times daily as needed for nausea Follow up with your primary physician next week for recheck Follow up care ordered?: Yes Mental Status: Alert Scripts Ondansetron (Zofran Odt) 4 Mg Tab.rapdis 4 MG PO Q6HR, #20 TAB Oral disintegrating tablet Prov: THELMA HUANG MD 10/17/16 HPI - General Medical General Chief Complaint: Dizzy Stated Complaint: LIGHT HEADED Time Seen by Provider: 19:35 Source: patient Exam Limitations: no limitations HPI - General Medical Initial Comments Pt began feeling generally lousy today with nausea, lightheadedness, general malaise and fatigue. Similar sx with his last MS 9 months ago. He also had a fall a week ago and has general left shoulder and chest wall pain since, but did not seek medical treatment. No CP, SOB, fever or chills or other chest complaint. Occurred At: home Onset: Rapid Duration: 12-24 hrs Severity: moderate Associated Symptoms: malaise, nausea/vomiting, DENIES: chest pain, cough, diaphoresis, fever/chills, headaches, loss of appetite, rash, seizure, shortness of breath, syncope, weakness Hx of Similar Symptoms: Yes Allergies: Coded Allergies: No Known Drug Allergies (Verified Allergy, Unknown, 05/13/16) Past History Patient Medical History Problem List Updates: Chronic back and lower extremity pain Past Medical History Metabolic: hypercholesterolemia, hypertension Cardiac: CAD, MS Psychological: depression Surgical History Cardiac: cardiac bypass, cardiac cath, cardiac stent, implantable defib, pacemaker Family History Family PMH: FOUND: other Vaccines Hx Influenza Vaccination: Yes (2015) Hx Pneumococcal Vaccination: Yes (2015) Social History Smoking Status: Current every day smoker Does patient use chewing tobac: No Second Hand Exposure: No Substance Use Type: does not use Alcohol Intake: none Marital Status: Sexuality: female partner Housing: house Household Members: spouse Service: No Occupational Hazard: No Advance Directives: Yes Full Code Record Review Pertinent history updated: Yes Review of Systems Constitutional Constitutional: dizziness, fatigue, DENIES: appetite decrease, appetite increase, chills, fever, weakness ENMT Ears: DENIES: pain Hearing: DENIES: hearing loss, tinnitus Balance: DENIES: vertigo Mouth/Throat: DENIES: change in swallowing, change in voice, hoarsness, painful swallowing, sore throat Cardiovascular Cardiac: DENIES: chest pain, dyspnea on exertion Rhythm/Rate: DENIES: irregular beat, palpitations, tachycardia Vascular: DENIES: pedal edema Pulmonary Respiratory: DENIES: cough, dyspnea, pleuritic chest pain GI Upper Abdomen: nausea, vomiting, DENIES: dysphagia, heartburn/indigestion, pain Lower Abdomen: DENIES: blood in stool, constipation, diarrhea, pain General: DENIES: burning, dysuria, frequency, pain, urgency Musculoskeletal General: DENIES: cramps, joint pain, joint swelling, pain, weakness Integumentary Skin: DENIES: rash, sores Neurological General: DENIES: headache, numbness, tingling, vertigo, weakness Psychiatric Psychiatric: DENIES: anxiety, depression, nervousness Physical Exam General General Nourishment: well nourished, well developed, appears stated age, no acute distress General Body Habitus: well groomed Vitals and Pain First Documented Vital Signs Date Time Temp Pulse Resp B/P Pulse Ox O2 Delivery O2 Flow Rate FiO2 10/17/16 19:38 98.1 59 16 151/77 98 Room Air Weight: Kilograms: 104.100 Height (feet): 6 Height (inches): 1.00 Triage Pain Scale: RN VS reviewed by Provider: Yes Normal Exams: Head: Normocephalic w/o trauma Eyes: Pupils are PERRLA w/ EOMI, No scleral icterus, irritation, or foreign bodies noted ENMT: No facial trauma, nasal exudates, pharyngeal erythema, or exudates are noted Neck: Full range of motion, without adenopathy, JVD, bruits or thyromegaly Chest/Resp: Clear all orantes, with good airflow, and symmetry bilaterally CV: Regular rate and rhythm, without murmur or gallop, Pulses 2+ all extremities, capillary refill, <2 seconds all ext., no pedal edema noted Abdomen: Bowel sounds positive, soft, non-tender, non-distended, no hepatosplenomegaly, masses or bruits noted Lymphatic: No lymphadenopathy, or lymphedema noted Integumentary: No rashes, hives, or bruising noted, hair and nails, without abnormality Neurologic: Patient is alert, and oriented, cranial nerves, motor/sensory/ cerebellar, exams w/o gross deficits, to observation Musculoskeletal (brief) Musculoskeletal Brief: FOUND: tenderness (mild to moderate tenderness in the left rhomboids, and left mid to upper trapezius surrounding the left scapula posteriorly. Patient has no scapular or other bony pain, no deltoid pain, no clavicular or before meals pain/tenderness.), NOT FOUND: deformity, loss of motion, spasm Progress Results/Orders Orders Procedure Category Date Status Time Iv Lock (Ed Only) EDM 10/17/16 Transmitted 19:58 EKG EKG 10/17/16 Taken Troponin I W LAB 10/17/16 Complete Hemolysis Index Cbc W/Auto LAB 10/17/16 Complete Diff-Reflex Manual Ethanol LAB 10/17/16 Complete Cmp - Comprehensive LAB 10/17/16 Complete Metabolic Lipase LAB 10/17/16 Complete Chest, Pa & Lateral RAD 10/17/16 Taken Ondansetron Inj PHA 10/17/16 Complete (Zofran) 20:00 Ketorolac (Toradol) PHA 10/17/16 Complete 20:00 Normal Saline (Normal PHA 10/17/16 Complete Saline Iv) 20:00 Lab Results Laboratory Tests Test 10/17/16 20:05 White Blood Count 11.9T/MM3 Red Blood Count 4.83M/MM3 Hemoglobin 15.5GM/DL Hematocrit 45.6% Mean Corpuscular Volume 94.4UM3 Mean Corpuscular Hemoglobin 32.1UUG Mean Corpuscular Hemoglobin Concent 34.0GM/DL RDW Standard Deviation 47.1FL Platelet Count 221T/MM3 Mean Platelet Volume 9.9UM3 Immature Granulocyte % (Auto) 0.3% Neutrophils (%) (Auto) 69.4% Lymphocytes (%) (Auto) 22.9% Monocytes (%) (Auto) 5.9% Eosinophils (%) (Auto) 1.3% Basophils (%) (Auto) 0.2% Absolute Immature Granulocyte (auto 0.03T/MM3 Absolute Neutrophils (auto) 8.3T/MM3 Absolute Lymphocytes (auto) 2.7T/MM3 Absolute Monocytes (auto) 0.7T/MM3 Absolute Eosinophils (auto) 0.2T/MM3 Absolute Basophils (auto) 0.0T/MM3 Turbidity < 20 Sodium Level 142MEQ/L Potassium Level 3.9MEQ/L Chloride Level 100MEQ/L Carbon Dioxide Level 27MEQ/L Anion Gap 15MEQ/L Blood Urea Nitrogen 17.0MG/DL Creatinine 0.9MG/DL Glomerular Filtration Rate Calc 85 BUN/Creatinine Ratio 19RATIO Glucose Level 129MG/DL Calculated Osmolality 277MOSM/KG Calcium Level 9.7MG/DL Total Bilirubin 0.70MG/DL Icterus Index < 2 Aspartate Amino Transf (AST/SGOT) 25U/L Alanine Aminotransferase (ALT/SGPT) 38U/L Alkaline Phosphatase 45U/L Troponin I < 0.012ng/ml Total Protein 7.7G/DL Albumin 4.3G/DL Globulin 3.4G/DL Albumin/Globulin Ratio 1.3RATIO Lipase 80U/L Chemistry Specimen Hemolysis 24 Alcohol, Quantitative <10MG/DL Medications Current ED Medications Ondansetron HCl (Zofran) 4 mg O ONCE IV Last administered on 10/17/16 20:08; Start 10/17/16 at 20:00; Stop 10/17/16 at 20:01; Status DC Ketorolac Tromethamine 30 mg 30 mg O ONCE IV Last administered on 10/17/16 20: 08; Start 10/17/16 at 20:00; Stop 10/17/16 at 20:01; Status DC Sodium Chloride (Normal Saline IV) 1,000 ml @ 0 mls/hr Q0M ONCE IV Last administered on 10/17/16 20:09; Start 10/17/16 at 20:00; Stop 10/17/16 at 20:01; Status DC Progress Progress Pt given Toradol and Zofran with NS IVF bolus - feeling much better. EKG shows normal sinus rhythm with evidence of an old infarction, no ST segment elevation and no other signs of acute ischemia. Ectopy. CBC - minimal white cell elevation with no left shift CMP - normal Troponin - normal Chest x-ray shows no acute findings, no consolidations, no evidence of fracture THELMA HUANG MD October 17, 2016 20:16
[2016-10-17 20:19] LABS: ALBUMIN 4.3 G/DL (3.5-5.0); ALBUMIN/GLOBULIN RATIO 1.3 RATIO (1.1-2.2); ALKALINE PHOSPHATASE 45 U/L (38-126); ALT (SGPT) 38 U/L (21-72); ANION GAP 15 MEQ/L (5-15); AST (SGOT) 25 U/L (17-59); BUN/CREATININE RATIO 19 RATIO (6-26); CALCIUM 9.7 MG/DL (8.4-10.2); CHLORIDE 100 MEQ/L (98-107); CO2 - CARBON DIOXIDE 27 MEQ/L (22-30); CREATININE 0.9 MG/DL (0.8-1.5); GLOMERULAR FILTRATION RATE 85; GLUCOSE 129 MG/DL (75-110); LIPASE 80 U/L (23-300); POTASSIUM 3.9 MEQ/L (3.6-5); SODIUM 142 MEQ/L (134-144); TOTAL PROTEIN 7.7 G/DL (6.3-8.2)
[2016-10-17 20:29] LABS: ETHANOL <10 MG/DL (<10)
--- NOTE | 2016-10-17 20:37 | NUR ---
BACK FROM XRAY
--- NOTE | 2016-10-17 21:01 | NUR ---
PROVIDER DR HUANG IN TO SEE PATIENT.
[2016-10-17] MEDS ORDERED: ONDA4TAB7 PO (21:04)
[2016-10-17 21:16] VITALS: BP 133/67; PULSE 55; RESP 16; TEMP 98.1; O2SAT 98
--- NOTE | 2016-10-18 08:09 | DI ---
INDICATION: ITS.REASON: left lateral chest pain after a fall PROCEDURE: CHEST 2-VIEWS UPRIGHT (PA \T\ LAT) Encounter: Initial Comparison: May 13, 2016 Findings: The lungs are stable in appearance without new focal airspace consolidation. There is no pleural effusion or pneumothorax. The heart size, pulmonary vascularity and mediastinal contours are unchanged. Prior sternotomy. Left pacemaker defibrillator. IMPRESSION: Stable appearance of the chest without acute cardiopulmonary disease. .
== END 2016-10-17 21:16 | disposition home or self-care (01) ==
LOC: ED 19:34
DX: B34.9 Viral infection, unspecified (principal); Z79.82 Long term (current) use of aspirin; Z79.899 Other long term (current) drug therapy
CPT/HCPCS: 71020; 80053; 80307; 83690; 84484; 85025; 93005; 96361; 96374; 96375; 99284; J1885; J2405; J7030